=== PATIENT | female | born 1965 | race Caucasian/White ===

== ENCOUNTER 2023-08-15 10:58 | Emergency (ER) | payer MEDICAID ==
[~2023-08-15] VITALS: Ht 170.2 cm; Wt 117.9 kg
[~2023-08-15 10:58] MED LIST: OXYC-130 PO
[2023-08-15 11:00] VITALS: BP_SYST 121; PULSE 77; RESP 18; TEMP 97.3; O2SAT 95
[2023-08-15 12:12] LABS: INFLUENZA TYPE A Negative (NEGATIVE); INFLUENZA TYPE B NEGATIVE (NEGATIVE)
[2023-08-15] MEDS ORDERED: PRED20TA PO (12:50)
[2023-08-15] MEDS ORDERED: AZIT-93 PO (12:50)
[2023-08-15] MEDS ORDERED: NAPR-688 PO (12:50)
[2023-08-15 12:59] VITALS: BP_SYST 121; PULSE 77; RESP 18; TEMP 97.3; O2SAT 95
== END 2023-08-15 12:59 | disposition home or self-care (01) ==
LOC: SED 10:58
DX: J32.9 Chronic sinusitis, unspecified (principal); R05.9 Cough, unspecified; R51.9 Headache, unspecified; K21.9 Gastro-esophageal reflux disease without esophagitis; Z88.0 Allergy status to penicillin; Z79.899 Other long term (current) drug therapy; Z20.822 Contact with and (suspected) exposure to COVID-19
CPT/HCPCS: 36415; 99283